=== PATIENT | male | born 1980 | race African-American/Black ===

== ENCOUNTER 2016-06-19 11:41 | Emergency (ER) | payer BC ==
[2016-06-19 11:17] LABS: INFLUENZA A SCREEN NEGATIVE (NEGATIVE)
[2016-06-19 11:18] LABS: INFLUENZA B SCREEN POSITIVE (NEGATIVE)
== END 2016-06-19 13:00 | disposition home or self-care (01) ==
LOC: ER 11:41
PROVIDERS: Physician Assistant
DX: J11.1 Influenza due to unidentified influenza virus with other respiratory manifestations (principal); F17.200 Nicotine dependence, unspecified, uncomplicated
CPT/HCPCS: 71020; 87804; 99284; A9270-GY